=== PATIENT | male | born 1955 | race Caucasian/White ===

== ENCOUNTER 2017-11-24 20:22 | Emergency (ER) | payer MEDICARE, SELFPAY ==
[2017-11-24 20:23] VITALS: BP 204/102; PULSE 84; RESP 18; TEMP 36.4; O2SAT 100; BMI 37.3
--- NOTE | 2017-11-24 20:26 | NURSING ---
NO OLD EKG
--- NOTE | 2017-11-24 20:36 | RAD_ITS ---
STUDY: X-RAY CHEST REASON FOR EXAM: Male, 62 years old. SOB AND CHEST PAINS THAT RADIATE THROUGH TO HIS BACK. TECHNIQUE: Single frontal view of the chest. COMPARISON: None. FINDINGS: Chronic appearing increased interstitial lung markings. There is no demonstrated pleural abnormality. Enlarged heart size. Normal mediastinum and kimberly. Normal visualized pulmonary arteries. There is atherosclerotic calcification of the aortic arch with tortuosity. There are diffuse degenerative changes of the visualized thoracic spine. There is degenerative osteoarthritis of the bilateral shoulders. There is no demonstrated abnormality of the visualized soft tissue structures of the upper abdomen. RAD/Chest 1 View (Portable) IMPRESSION: There are no acute findings. Electronically Signed: Nimesh Cortez MD at 21:32 EDT , Service support ,
--- NOTE | 2017-11-24 20:36 | EKG12_ITS ---
Test Reason : CP Blood Pressure : / mmHG Vent. Rate : 087 BPM Atrial Rate : 087 BPM P-R Int : 186 ms QRS Dur : 106 ms QT Int : 390 ms P-R-T Axes : 030 019 041 degrees QTc Int : 469 ms Normal sinus rhythm Normal ECG Confirmed by QUANG SMITH, CRISTOBAL ([id number]), editor school photograph PRINCE CAILXTO ([id number]) on 11/28/2017 2:22:27 PM Referred By: LACY/JUANITO Confirmed By:CRISTOBAL DEL RIO MD
[2017-11-24 20:37] VITALS: BP 207/86; PULSE 83; RESP 19; O2SAT 98
[2017-11-24] MEDS: Aspirin 81 MG TAB.CHEW 324 MG PO (20:40)
[2017-11-24 20:46] VITALS: BP 171/77; PULSE 86; RESP 26; O2SAT 100; O2SAT 99
[2017-11-24 20:46] LABS: Absolute Lymphocyte Count 0.81 X10^3/ul (0.83-4.51); Absolute Neutrophil Count 13.4 X10^3/uL (2.0-7.7); Basophil# 0.01 X10^3/uL; Basophil% 0.1 % (0-1); Eosinophil# 0.08 X10^3/uL; Eosinophils% 0.5 % (0-5); Hemoglobin 14.9 g/dl (13.0-16.5); Lymphocyte # 0.81 X10^3/ul (4.0); Lymphocyte % 5.4 % (19-41); Mean Corp Hgb Conc 33.9 g/gl (32-36); Mean Corpuscular Hgb 30.6 pg (27.0-32.0); Mean Corpuscular Volume 90.3 fL (80-94); Mean Platelet Vol. 9.9 fl (6.2-12.0); Monocyte# 0.52 X10^3/uL; Monocyte% 3.5 % (0-10); Neutrophil # 13.43 X10^3/uL (2.7-7.7); Neutrophil % 90.4 % (47-70); POSITIVE COUNT NO; POSITIVE DIFFERENTIAL NO; POSITIVE MORPHOLOGY NO; Platelet Count 253 K/mm3 (150-450); RBC Distribution Width SD 46.5 fl (35.1-43.9); Red Blood Count 4.87 M/mm3 (4.6-6.2); White Blood Count 14.9 K/mm3 (4.4-11.0)
--- NOTE | 2017-11-24 20:46 | ED.VISSUMM ---
- ER Visit Summary Date of Service: 11/24/17 Chief Complaint: Chest pain, abdominal pain, back pain History of Present Illness: The patient is a 62 M who presents with the above symptoms. He states he started with chest pain yesterday. This pain radiated down the abdomen and around to the back. He complains of pain from the chest to the top of the abdomen. He states his back hurts from the neck all the way down to the waistline. He describes as aching and throbbing. Nothing makes it better or worse. Denies any nausea or vomiting. He has had some diarrhea he is currently on lactulose. The patient states he is set up for procedure at [facility]. It sounds like he is having an ERCP due to a ductal stone. He states that a month after that they are going to do surgery to put a stent in to his duct. He denies any fevers. He took nothing for it at home. He has no cardiac risk factors or history. He has had gastric bypass surgery. Physical Examination: Vital signs reviewed. HEENT exam unremarkable. Heart is regular rate and rhythm without murmurs. Lungs are clear to auscultation. Chest is nontender to palpation. Abdomen is soft with epigastric tenderness to palpation. Back exam reveals diffuse tenderness with no step-offs. Extremities reveal no edema. Peripheral pulses are equal. Skin exam normal. Neurologic exam normal. Test Results: Chest x-ray unremarkable. EKG is normal sinus rhythm with no ST changes. White blood cell count 14.9, sodium 146, potassium 2.6, chloride 117. ALT 207, AST 230, alkaline phosphatase 787, total bilirubin 2.4. Urinalysis is positive with nitrites and 5-10 white blood cells Emergency Department Course and Treatment: Patient was treated with aspirin. I will give him naproxen for his pain control. He does have a urinary tract infection but I will treat with Keflex. I will give him oral potassium supplement. This is likely decreased secondary to his use of lactulose for high ammonia levels. He does have elevations of his liver enzymes and bilirubin. This is likely secondary to the ductal stone. He has known about this and tells me that his liver enzymes have been elevated for a couple months. I do not feel that this has any cause for his pain today as his pain is diffuse across his trunk and not localized to the right upper quadrant. I do not feel that there is coming from a gallbladder etiology. I will treat him with Keflex, naproxen and K-Dur at home for his symptoms. He will need to follow-up with his primary care physician Treatment Plan: [] Disposition: Discharge Impression: UTI, hypokalemia, elevated liver enzymes This note was generated with [employer] dictation software. It may contain incorrect words, spelling, and punctuation that were not noted in review of the chart prior to signing ED Disposition - Plan for ED Patient: Chief Complaint: Chest Pain Referrals: Joey Castro MD [Primary Care Provider] -
[2017-11-24 21:03] LABS: Mucous, Urine 0 SEEN /hpf (<or=2+); Red Blood Cells-Urine 0 SEEN /hpf (0-5); Squamous Epithelial Cells - UA 0 SEEN /hpf (0-5)
[2017-11-24 21:05] LABS: Color, Urine Yellow (Yellow); Glucose, Dipstick Normal (Normal); Ketone-Dipstick Negative (Negative); Leukocyte Esterase-Dipstick 500 /ul (Negative); Nitrite-Dipstick Positive (Negative); Occult Blood-Urine 10 /ul (Negative); Protein-Dipstick 30 mg/dl (Negative); Urine Clarity Clear (Clear); Urine Urobilinogen 12 mg/dl (Normal)
--- NOTE | 2017-11-24 21:05 | NURSING ---
DR. HOUSE MADE AWARE OF PATIENT'S POTASSIUM OF 2.6.
[2017-11-24 21:06] LABS: Urine Bilirubin Dipstick 3 mg/dL (Negative)
[2017-11-24 21:06] LABS: ALB/GLOB Ratio 0.6 RATIO (0.9-2.4); AST(SGOT) 230 U/L (15-37); Alanine Aminotransfer ALT/SGPT 202 U/L (16-61); Albumin, Serum 2.6 g/dL (3.2-5.0); Alkaline Phosphatase 787 U/L (45-117); Anion Gap 8 (5-15); BUN 14 mg/dL (7-18); BUN/Creat Ratio 23.6 RATIO (10-20); Calcium,Total 6.9 mg/dL (8.5-10.1); Chloride 117 mmol/L (98-107); Creatinine, Serum 0.59 mg/dL (0.70-1.30); EST Glomerular Filtration Rate 147 mL/min (>60); Est Glom Filt Rate - Afr Amer 177 mL/min (>60); Estimated Creatinine Clearance 121.37 ml/min; Glucose 77 mg/dL (74-106); Lipase 242 U/L (73-393); Potassium 2.6 mmol/L (3.5-5.1); Protein, Total 6.6 g/dL (6.4-8.2); Sodium Level 146 mmol/L (136-145)
[2017-11-24 21:10] LABS: White Blood Cells 5-10 SEEN /hpf (0-5)
[2017-11-24 21:11] LABS: Calcium Oxalate Crystals Ur 1+ /hpf (<or=2+)
[2017-11-24 21:12] LABS: Bacteria RARE /hpf (None Seen)
--- NOTE | 2017-11-24 21:34 | ED.DEP ---
ED Disposition - Plan for ED Patient: Disposition: Home or Assisted Living Chief Complaint: Chest Pain Instructions: ED UTI Cystitis Male Prescriptions: Potassium Chloride [K-Dur] 10 meq PO DAILY #20 tab Cephalexin [Keflex] 500 mg PO BID #10 cap Naproxen [Naprosyn] 500 mg PO BID #20 tab Referrals: Joey Castro MD [Primary Care Provider] -
[2017-11-24 21:36] VITALS: BP 175/90; PULSE 89; RESP 22; O2SAT 97
[2017-11-24] MEDS: Naproxen 500 MG Tablet PO (21:36)
[2017-11-24] MEDS: Cephalexin 250 MG Capsule 500 MG PO (21:37)
[2017-11-24 21:41] VITALS: BP 175/90; PULSE 89; RESP 22; O2SAT 98
== END 2017-11-24 21:42 | disposition home or self-care (01) ==
PROVIDERS: Emergency Provider Emergency Medicine
DX: N39.0 Urinary tract infection, site not specified (principal); E87.6 Hypokalemia; R94.5 Abnormal results of liver function studies; J45.909 Unspecified asthma, uncomplicated; Z79.899 Other long term (current) drug therapy
CPT/HCPCS: 71045; 80053; 81001; 83690; 84484; 85025; 93005; 99285; A4216

== ENCOUNTER 2017-12-22 20:07 | Emergency (ER) | payer MEDICARE, SELFPAY ==
[2017-12-22] VITALS (11 sets, daily range): BP systolic 84–106; BP diastolic 48–65; PULSE 88–115; RESP 15–30; TEMP 36.9–37.2; O2SAT 92–98; BMI 36.1
--- NOTE | 2017-12-22 20:21 | EKG12_ITS ---
Test Reason : ABD PAIN Blood Pressure : / mmHG Vent. Rate : 102 BPM Atrial Rate : 102 BPM P-R Int : 184 ms QRS Dur : 096 ms QT Int : 374 ms P-R-T Axes : 009 004 024 degrees QTc Int : 487 ms Sinus tachycardia Inferior infarct , age undetermined Abnormal ECG Confirmed by WILL SMITH, MERLIN ([id number]), web editor OUMAR RAWLS ([id number]) on 12/25/2017 10:17:50 AM Referred By: DR BOYER Confirmed By:MERLIN SOLIS MD
--- NOTE | 2017-12-22 20:25 | ED.RN ---
NO OLD EKGS IN MUSE.
--- NOTE | 2017-12-22 20:27 | RAD_ITS ---
STUDY: X-RAY CHEST REASON FOR EXAM: Male, 62 years old. Fever and hypotension. TECHNIQUE: AP COMPARISON: November 24, 2017 FINDINGS: There is no new focal consolidation. There is a stable calcified appearing nodular focus within the left upper lung that likely reflects an underlying granuloma. Normal size heart. Normal mediastinum and kimberly. Normal visualized pulmonary arteries. Normal visualized aortic arch and descending thoracic aorta. There are diffuse degenerative changes of the visualized thoracic spine. Normal visualized ribs, clavicles, and shoulders. There is no demonstrated abnormality of the visualized soft tissue structures of the upper abdomen. RAD/Chest 1 View (Portable) IMPRESSION: No acute cardiopulmonary process. Electronically Signed: Radha Graham MD at 21:27 EDT Tel , Service support ,
[2017-12-22] MEDS: 0.9% Normal Saline 1,000 ML 1000 ML IV ×3 (20:49→21:38)
[2017-12-22 20:52] LABS: Absolute Lymphocyte Count 0.92 X10^3/ul (0.83-4.51); Absolute Neutrophil Count 20.5 X10^3/uL (2.0-7.7); Basophil# 0.02 X10^3/uL; Basophil% 0.1 % (0-1); Eosinophil# 0.03 X10^3/uL; Eosinophils% 0.1 % (0-5); Hematocrit 42.5 % (40-54); Hemoglobin 14.6 g/dl (13.0-16.5); Lymphocyte # 0.92 X10^3/ul (4.0); Lymphocyte % 4.2 % (19-41); Mean Corp Hgb Conc 34.4 g/gl (32-36); Mean Corpuscular Hgb 31.3 pg (27.0-32.0); Mean Platelet Vol. 9.6 fl (6.2-12.0); Monocyte# 0.17 X10^3/uL; Monocyte% 0.8 % (0-10); Neutrophil # 20.54 X10^3/uL (2.7-7.7); Neutrophil % 94.6 % (47-70); Platelet Count 344 K/mm3 (150-450); RBC Distribution Width CV 14.6 % (11.6-14.6); RBC Distribution Width SD 47.7 fl (35.1-43.9); Red Blood Count 4.67 M/mm3 (4.6-6.2); White Blood Count 21.7 K/mm3 (4.4-11.0)
[2017-12-22 20:54] LABS: Color, Urine Amber (Yellow); Glucose, Dipstick Normal (Normal); Ketone-Dipstick 15 mg/dl (Negative); Leukocyte Esterase-Dipstick 500 /ul (Negative); Nitrite-Dipstick Positive (Negative); Occult Blood-Urine 25 /ul (Negative); Protein-Dipstick 100 mg/dl (Negative); Urine Bilirubin Dipstick 6 mg/dL (Negative); Urine Clarity Cloudy (Clear); Urine Urobilinogen 12 mg/dl (Normal)
[2017-12-22 21:09] LABS: ALB/GLOB Ratio 0.6 RATIO (0.9-2.4); AST(SGOT) 188 U/L (15-37); Alanine Aminotransfer ALT/SGPT 147 U/L (16-61); Albumin, Serum 2.8 g/dL (3.2-5.0); Alkaline Phosphatase 985 U/L (45-117); Anion Gap 16 (5-15); BUN 17 mg/dL (7-18); BUN/Creat Ratio 10.6 RATIO (10-20); Chloride 100 mmol/L (98-107); EST Glomerular Filtration Rate 47 mL/min (>60); Est Glom Filt Rate - Afr Amer 57 mL/min (>60); Estimated Creatinine Clearance 44.76 ml/min; Glucose 106 mg/dL (74-106); Potassium 3.7 mmol/L (3.5-5.1); Protein, Total 7.8 g/dL (6.4-8.2); Sodium Level 136 mmol/L (136-145)
[2017-12-22 21:12] LABS: White Blood Cells 50-100 SEEN /hpf (0-5)
[2017-12-22 21:13] LABS: Bacteria 2+ /hpf (None Seen); Hyaline Cast 0-5 SEEN /lpf (0-5); Mucous, Urine 1+ /hpf (<or=2+); Red Blood Cells-Urine 0-5 SEEN /hpf (0-5); Squamous Epithelial Cells - UA 0-5 SEEN /hpf (0-5)
[2017-12-22 21:16] LABS: Lactic Acid 5.3 mmol/L (0.4-2.0)
[2017-12-22 21:17] LABS: Differential Indicated SCAN CRITERIA MET; POSITIVE COUNT NO; POSITIVE DIFFERENTIAL YES; POSITIVE MORPHOLOGY NO
[2017-12-22 21:21] LABS: Partial Thromboplast Time 26.8 Seconds (24.1-36.2)
[2017-12-22 21:30] LABS: International Normalized Ratio 1.2; Prothrombin Time (Protime)PT. 14.8 SECONDS (11.7-14.9)
--- NOTE | 2017-12-22 21:31 | ED.VISSUMM ---
- ER Visit Summary Date of Service: 12/22/17 Chief Complaint: Fever, chills and diaphoresis History of Present Illness: The patient is a 62 M who presents and believes he has a urinary tract infection. He states he urinating blood and he has discomfort with urination. He was admitted in November for UTI. He was at [facility] yesterday and had a stent placed for known pancreatic stones. He is status post cholecystectomy November 2016. He reports fever 100.1 at home. He took 2 anti-inflammatory pills 3 hours prior to presentation. He denies headache. Denies double vision, blurred vision loss of vision. Denies runny nose, congestion, postnasal drainage, earache or sore throat. He complains of mild shortness of breath with activity. Denies cough. He denies any chest discomfort. He does complain of epigastric right upper quadrant pain. He reports dark colored urine. He denies light colored stool. Denies any blood or mucus in his stool. He denies bruising easily. He denies any myalgias, or arthralgias. He denies paresthesia, anesthesia or motor weakness. He does complain of generalized weakness and lightheadedness with sitting. Physical Examination: Initial blood pressure was 97/56. Heart rate was 125. He was not febrile. However he did take anti-paretic prior to arrival. He appears jaundiced. HEENT is remarkable scleral icterus. Heart is rapid and regular without murmur, gallop or rub. Lungs are clear to auscultation. Abdomen is tender right upper quadrant left upper quadrant. He has no evidence of inguinal hernia. There is no CVA tenderness noted. There is no penile lesions or discharge noted. He has mild edema lower extremity's. Patient is alert and oriented ?3. Motor is 5 over 5. Sensory is intact. DTRs are symmetric with no clonus or Babinski sign. Cranial 2 through 12 are intact. Cerebellar testing is normal. Test Results: Portable chest x-ray reveals no acute findings. There is no infiltrate or effusion noted. Cardiac silhouette is normal. EKG sinus tachycardia rate of 102 with nonspecific inferior changes. White count is 21.7 thousand with 95% segs. BMP is remarkable for an anion gap acidosis with a CO2 of 20 and anion gap is 16. Hepatic profile is remarkable for total bili of 9.0. Alk phos 95 ALT of 147 AST of 188 and lipase of 20,047. Urine is remarkable for infection with leukoesterase, nitrites and blood on dip analysis. Microscopic reveals 50-100 WBCs with 2+ bacteria and is a good specimen. Lactate is 5.5. Emergency Department Course and Treatment: In light of hypotension tachycardia documented fever at home concern patient has an infected obstructed pancreatic stone. IV was established. He received IV fluids. Sepsis workup was undertaken. Zosyn was ordered and administered for GI francisco coverage. Chest x-ray was obtained because of his complaint of dyspnea. EKG to rule out ischemia. Patient's blood pressure deteriorated. He was verbally consented for right subclavian line. He was informed of risks benefits and necessity of wine. He gave verbal consent. He is presently receiving his 30 cc/kg bolus. His pressure is 76 systolic. Levophed has been ordered from the pharmacy. Portable chest x-ray was ordered to confirm line placement. Patient became hypotensive again with systolic in the 70s after 30 cc/kg bolus. He is presently on Levophed at 5 mics. Treatment Plan: Patient was consented for 7.5 Rwandan triple-lumen. Right subclavian line was placed on first attempt. This was cannulated on the way end. Using Seldinger technique 7.5 Rwandan triple-lumen was placed. Blood was aspirated from all 3 ports. Critical care time 37 minutes Disposition: Clinic [facility] was contacted for emergent transfer since patient has septic shock. Impression: 1. Septic shock 2. Obstructing pancreatic stones with acute on chronic pancreatitis 3. Sinus tachycardia documented on monitor 4. Urinary tract infection This note was generated with [employer] dictation software. It may contain incorrect words, spelling, and punctuation that were not noted in review of the chart prior to signing ED Disposition - Plan for ED Patient: Chief Complaint: Complaint Referrals: Joey Castro MD [Primary Care Provider] -
--- NOTE | 2017-12-22 21:33 | RAD_ITS ---
STUDY: X-RAY CHEST REASON FOR EXAM: Male, 62 years old. Line placement. TECHNIQUE: Portable frontal COMPARISON: December 22, 2017 at 8:32 PM FINDINGS: There is a new right-sided central venous catheter in place with its tip within the expected region of the superior vena cava. There is no new focal consolidation. Normal size heart. Normal mediastinum and kimberly. Normal visualized pulmonary arteries. Normal visualized aortic arch and descending thoracic aorta. There are diffuse degenerative changes of the visualized thoracic spine. Normal visualized ribs, clavicles, and shoulders. There is no demonstrated abnormality of the visualized soft tissue structures of the upper abdomen. RAD/CXR for Line Placement IMPRESSION: Right central venous catheter in a grossly satisfactory position. No acute cardiopulmonary process. Electronically Signed: Radha Graham MD at 22:10 EDT Tel , Service support ,
--- NOTE | 2017-12-22 21:35 | ED.DCSUM_ITS ---
- ER Visit Summary Date of Service: 12/22/17 Chief Complaint: Fever, chills and diaphoresis History of Present Illness: The patient is a 62 M who presents and believes he has a urinary tract infection. He states he urinating blood and he has discomfort with urination. He was admitted in November for UTI. He was at [facility] yesterday and had a stent placed for known pancreatic stones. He is status post cholecystectomy November 2016. He reports fever 100.1 at home. He took 2 anti-inflammatory pills 3 hours prior to presentation. He denies headache. Denies double vision, blurred vision loss of vision. Denies runny nose, congestion, postnasal drainage, earache or sore throat. He complains of mild shortness of breath with activity. Denies cough. He denies any chest discomfort. He does complain of epigastric right upper quadrant pain. He reports dark colored urine. He denies light colored stool. Denies any blood or mucus in his stool. He denies bruising easily. He denies any myalgias, or arthralgias. He denies paresthesia , anesthesia or motor weakness. He does complain of generalized weakness and lightheadedness with sitting. Physical Examination: Initial blood pressure was 97/56. Heart rate was 125. He was not febrile. However he did take anti-paretic prior to arrival. He appears jaundiced. HEENT is remarkable scleral icterus. Heart is rapid and regular without murmur, gallop or rub. Lungs are clear to auscultation. Abdomen is tender right upper quadrant left upper quadrant. He has no evidence of inguinal hernia. There is no CVA tenderness noted. There is no penile lesions or discharge noted. He has mild edema lower extremity's. Patient is alert and oriented ?3. Motor is 5 over 5. Sensory is intact. DTRs are symmetric with no clonus or Babinski sign. Cranial 2 through 12 are intact. Cerebellar testing is normal. Test Results: Portable chest x-ray reveals no acute findings. There is no infiltrate or effusion noted. Cardiac silhouette is normal. EKG sinus tachycardia rate of 102 with nonspecific inferior changes. White count is 21.7 thousand with 95% segs. BMP is remarkable for an anion gap acidosis with a CO2 of 20 and anion gap is 16. Hepatic profile is remarkable for total bili of 9.0. Alk phos 95 ALT of 147 AST of 188 and lipase of 20,047. Urine is remarkable for infection with leukoesterase, nitrites and blood on dip analysis. Microscopic reveals 50-100 WBCs with 2+ bacteria and is a good specimen. Lactate is 5.5. Emergency Department Course and Treatment: In light of hypotension tachycardia documented fever at home concern patient has an infected obstructed pancreatic stone. IV was established. He received IV fluids. Sepsis workup was undertaken. Zosyn was ordered and administered for GI francisco coverage. Chest x- ray was obtained because of his complaint of dyspnea. EKG to rule out ischemia. Patient's blood pressure deteriorated. He was verbally consented for right subclavian line. He was informed of risks benefits and necessity of wine. He gave verbal consent. He is presently receiving his 30 cc/kg bolus. His pressure is 76 systolic. Levophed has been ordered from the pharmacy. Portable chest x-ray was ordered to confirm line placement. Patient became hypotensive again with systolic in the 70s after 30 cc/kg bolus. He is presently on Levophed at 5 mics. Treatment Plan: Patient was consented for 7.5 Guinean triple-lumen. Right subclavian line was placed on first attempt. This was cannulated on the way end. Using Seldinger technique 7.5 Guinean triple-lumen was placed. Blood was aspirated from all 3 ports. Critical care time 37 minutes Disposition: Clinic [facility] was contacted for emergent transfer since patient has septic shock. Impression: 1. Septic shock 2. Obstructing pancreatic stones with acute on chronic pancreatitis 3. Sinus tachycardia documented on monitor 4. Urinary tract infection This note was generated with [employer] dictation software. It may contain incorrect words, spelling, and punctuation that were not noted in review of the chart prior to signing ED Disposition - Plan for ED Patient: Chief Complaint: Complaint Referrals: Joey Castro MD [Primary Care Provider] -
[2017-12-22 21:41] LABS: Differential Comment SCANNED
[2017-12-22] MEDS: 0.9% Normal Saline 1,000 ML 250 ML IV (22:41)
[2017-12-22] MEDS: fentaNYL 100 MCG/2 ML Ampul 50 MCG IV (23:00)
[2017-12-22 23:47] LABS: Reflex Lactate? Y
[2017-12-23 00:20] LABS: Lactic Acid 2.6 mmol/L (0.4-2.0)
== END 2017-12-22 23:50 | disposition short-term general hospital (02) ==
LOC: ED 21:01
PROVIDERS: Emergency Provider Emergency Medicine
DX: A41.9 Sepsis, unspecified organism (principal); K85.10 Biliary acute pancreatitis without necrosis or infection; K86.1 Other chronic pancreatitis; K80.51 Calculus of bile duct without cholangitis or cholecystitis with obstruction; N39.0 Urinary tract infection, site not specified; R65.21 Severe sepsis with septic shock; R00.0 Tachycardia, unspecified; E66.9 Obesity, unspecified; J44.9 Chronic obstructive pulmonary disease, unspecified; N40.0 Benign prostatic hyperplasia without lower urinary tract symptoms; M10.9 Gout, unspecified; Z90.49 Acquired absence of other specified parts of digestive tract; Z79.899 Other long term (current) drug therapy
CPT/HCPCS: 36556; 71045; 80053; 81001; 83605; 83690; 85025; 85610; 85730; 87040; 87077; 87086; 87088; 87186; 93005; 96361; 96365; 96367; 96375; 99285; J7030; A4216; C1751

== ENCOUNTER → 2018-01-07 19:04 | Outpatient (CLI) | payer MEDICARE, SELFPAY ==
[2018-01-07 19:24] LABS: Absolute Lymphocyte Count 3.69 X10^3/ul (0.83-4.51); Absolute Neutrophil Count 4.6 X10^3/uL (2.0-7.7); Basophil# 0.08 X10^3/uL; Basophil% 0.8 % (0-1); Eosinophil# 0.42 X10^3/uL; Eosinophils% 4.3 % (0-5); Hematocrit 38.3 % (40-54); Hemoglobin 12.6 g/dl (13.0-16.5); Lymphocyte # 3.69 X10^3/ul (4.0); Lymphocyte % 37.8 % (19-41); Mean Corp Hgb Conc 32.9 g/gl (32-36); Mean Corpuscular Volume 94.3 fL (80-94); Mean Platelet Vol. 9.3 fl (6.2-12.0); Monocyte# 0.89 X10^3/uL; Monocyte% 9.1 % (0-10); Neutrophil # 4.61 X10^3/uL (2.7-7.7); Neutrophil % 47.4 % (47-70); Platelet Count 495 K/mm3 (150-450); RBC Distribution Width CV 14.8 % (11.6-14.6); RBC Distribution Width SD 49.2 fl (35.1-43.9); Red Blood Count 4.06 M/mm3 (4.6-6.2); White Blood Count 9.8 K/mm3 (4.4-11.0)
[2018-01-07 19:25] LABS: POSITIVE COUNT NO; POSITIVE DIFFERENTIAL NO; POSITIVE MORPHOLOGY NO
[2018-01-07 19:30] LABS: Creatinine, Serum 0.74 mg/dL (0.70-1.30); EST Glomerular Filtration Rate 114 mL/min (>60); Est Glom Filt Rate - Afr Amer 138 mL/min (>60)
== END ==
DX: A49.8 Other bacterial infections of unspecified site (principal)
CPT/HCPCS: 82565; 85025

== ENCOUNTER 2018-01-14 14:23 | Outpatient (RCR) | payer MEDICARE, SELFPAY ==
[2017-12-31 20:57] LABS: Creatinine, Serum 0.62 mg/dL (0.70-1.30); EST Glomerular Filtration Rate 139 mL/min (>60); Est Glom Filt Rate - Afr Amer 168 mL/min (>60)
[2017-12-31 21:09] LABS: Absolute Lymphocyte Count 3.69 X10^3/ul (0.83-4.51); Absolute Neutrophil Count 7.2 X10^3/uL (2.0-7.7); Basophil# 0.06 X10^3/uL; Basophil% 0.5 % (0-1); Hematocrit 35.7 % (40-54); Hemoglobin 11.7 g/dl (13.0-16.5); Lymphocyte # 3.69 X10^3/ul (4.0); Lymphocyte % 29.2 % (19-41); Mean Corp Hgb Conc 32.8 g/gl (32-36); Mean Corpuscular Hgb 30.3 pg (27.0-32.0); Mean Corpuscular Volume 92.5 fL (80-94); Mean Platelet Vol. 9.2 fl (6.2-12.0); Monocyte# 0.88 X10^3/uL; Neutrophil # 7.24 X10^3/uL (2.7-7.7); Neutrophil % 57.2 % (47-70); POSITIVE COUNT YES; POSITIVE DIFFERENTIAL NO; POSITIVE MORPHOLOGY YES; Platelet Count 587 K/mm3 (150-450); RBC Distribution Width CV 14.3 % (11.6-14.6); RBC Distribution Width SD 47.3 fl (35.1-43.9); Red Blood Count 3.86 M/mm3 (4.6-6.2); White Blood Count 12.6 K/mm3 (4.4-11.0)
[2018-01-01 12:03] LABS: Pathologist Review Reviewed
[2018-01-14 14:36] LABS: Absolute Lymphocyte Count 3.41 X10^3/ul (0.83-4.51); Absolute Neutrophil Count 3.8 X10^3/uL (2.0-7.7); Basophil# 0.05 X10^3/uL; Basophil% 0.6 % (0-1); Eosinophil# 0.48 X10^3/uL; Eosinophils% 5.7 % (0-5); Hematocrit 40.8 % (40-54); Hemoglobin 13.1 g/dl (13.0-16.5); Lymphocyte # 3.41 X10^3/ul (4.0); Lymphocyte % 40.2 % (19-41); Mean Corp Hgb Conc 32.1 g/gl (32-36); Mean Corpuscular Hgb 30.3 pg (27.0-32.0); Mean Corpuscular Volume 94.4 fL (80-94); Mean Platelet Vol. 9.3 fl (6.2-12.0); Monocyte# 0.77 X10^3/uL; Monocyte% 9.1 % (0-10); Neutrophil # 3.76 X10^3/uL (2.7-7.7); Neutrophil % 44.3 % (47-70); Platelet Count 341 K/mm3 (150-450); RBC Distribution Width CV 15.2 % (11.6-14.6); RBC Distribution Width SD 52.3 fl (35.1-43.9); Red Blood Count 4.32 M/mm3 (4.6-6.2); White Blood Count 8.5 K/mm3 (4.4-11.0)
[2018-01-14 14:37] LABS: POSITIVE COUNT NO; POSITIVE DIFFERENTIAL NO; POSITIVE MORPHOLOGY NO
[2018-01-14 14:43] LABS: Creatinine, Serum 0.77 mg/dL (0.70-1.30); EST Glomerular Filtration Rate 108 mL/min (>60); Est Glom Filt Rate - Afr Amer 131 mL/min (>60)
== END 2018-01-29 23:59 ==
LOC: HHLAB 14:23
DX: A49.8 Other bacterial infections of unspecified site (principal)
CPT/HCPCS: 82565; 85025

== ENCOUNTER 2019-01-11 16:18 | Emergency (ER) | payer MEDICARE, SELFPAY ==
[2019-01-11 16:19] VITALS: BP 161/88; PULSE 76; RESP 18; TEMP 36.8; O2SAT 95; BMI 33.6
--- NOTE | 2019-01-11 17:03 | ED.DCSUM_ITS ---
- ER Visit Summary Date of Service: 01/11/19 Chief Complaint: Left chest wall pain History of Present Illness: The patient is a 63 M who states that approximately 9 days ago he fell after losing his balance. He struck the left side of his chest. He continues to hurt. He notes pain just underneath his breast on the left. Denies any bruising. The pain is aching and turns to sharp with movement deep breathing and touch. No cough or coughing up blood. No significant shortness of breath. Physical Examination: Afebrile vital signs stable Gen: Well-nourished well-developed Head: Normocephalic atraumatic Eyes: Perrl EOMI ENT: TMs clear no rhinorrhea moist mucous membranes Neck: Supple no lymphadenopathy no JVD nontender CVS: Regular rate rhythm no murmurs normal S1-S2 Respiratory: No distress clear to auscultation bilaterally left anterior chest is tender to palpation along the costochondral border just inferior to the left breast. Abdomen: Soft nontender nondistended normal bowel sounds no masses Back: Nontender Extremity: Nontender no edema Skin: Normal color no rash Neuro: alert orientated ?3 CN II-XII intact normal strength sensation Psych: Normal affect normal mood Test Results: Rib series was obtained. This demonstrated left eighth and ninth rib fractures. No pneumothorax hemothorax noted. Emergency Department Course and Treatment: Patient will be discharged home with supportive care. Instructions for pillow for chest support when moving. Follow-up with primary care if not improving. Deep breathing several times per hour to stimulate incentive spirometry was encouraged Impression: 1. Left chest wall contusion This note was generated with [employer] dictation software. It may contain incorrect words, spelling, and punctuation that were not noted in review of the chart prior to signing ED Disposition - Plan for ED Patient: Disposition: Home or Assisted Living Instructions: Rib Fracture (Broken Rib) Referrals: Joey Barger MD [Primary Care Provider] - (in 2 weeks)
--- NOTE | 2019-01-11 17:12 | RAD_ITS ---
STUDY: X-RAY - UNILATERAL RIBS ( LEFT ) WITH CHEST REASON FOR EXAM: Male, 63 years old. Fall. Pain. TECHNIQUE - RIBS: 4 view(s) of the ribs. TECHNIQUE - CHEST: Frontal view COMPARISON: 12/23/1979 FINDINGS - RIBS: There are minimally displaced fractures at the lateral aspect of the left eighth and ninth ribs. FINDINGS - CHEST: The lungs are clear. There are no pleural effusions. There is no pneumothorax. The heart is normal in size. RAD/Ribs Uni Min 3V w/PA Chest IMPRESSION: RIBS: Minimally displaced fractures at the lateral aspect of the left eighth and ninth ribs. CHEST: Clear lungs. Electronically Signed: Eldon Murphy, at 17:28 EDT Tel , Service support ,
[2019-01-11 17:57] VITALS: BP 162/71; PULSE 79; RESP 16; O2SAT 96
== END 2019-01-11 17:55 | disposition home or self-care (01) ==
PROVIDERS: Emergency Provider Emergency Medicine; Family Provider Family Medicine; PCP Family Medicine
DX: S22.42XA Multiple fractures of ribs, left side, initial encounter for closed fracture (principal); S20.212A Contusion of left front wall of thorax, initial encounter; W19.XXXA Unspecified fall, initial encounter; Y93.9 Activity, unspecified; Y92.9 Unspecified place or not applicable; G62.9 Polyneuropathy, unspecified; M10.9 Gout, unspecified; N40.0 Benign prostatic hyperplasia without lower urinary tract symptoms; Z79.899 Other long term (current) drug therapy
CPT/HCPCS: 71101; 99282

== ENCOUNTER 2024-03-24 20:22 | Emergency (ER) | payer OTHER, MEDICARE, SELFPAY ==
[2024-03-24 20:22] VITALS: BP 184/95; PULSE 83; RESP 18; TEMP 37.1; O2SAT 96; BMI 37.8
[2024-03-24 22:22] VITALS: PULSE 88; RESP 16; O2SAT 99
--- NOTE | 2024-03-24 22:22 | EDS_ITS ---
HPI History of Present Illness Chief Complaint: Laceration Narrative Narrative: Chief complaint and HPI: Laceration. 69-year-old male presents for evaluation of right anterior herrera laceration. Patient states that he was at work today when approximately 8 PM he scraped his leg on a skid steer. He is not on blood thinners. Patient states that he is up-to-date on tetanus. I do not have that in my records but he states he knows for sure he got a tetanus vaccine last year. Patient denies any crush injury to the actual lower extremity or bone. Denies pain. Denies any his head. No LOC. Denies injury elsewhere. Review of systems: See HPI Medications: As listed on the chart Allergies: As listed on the chart PFSH: Per chart Vital signs: As listed on the chart. Reviewed. Physical exam: Gen: A&O x3, NAD Head: Normocephalic, atraumatic Eyes: No sclera icterus, conjunctiva clear ENT: Moist mucous membranes Neck: Full range of motion CV: Regular rate Resp: Nonlabored respiration Musc: Full ROM, no deformity, 8 cm V-shaped laceration to the right anterior herrera, no active bleeding, no foreign material observed, DP/PT pulses plus 2 out of 4, good capillary refill, sensation intact, nontender to palpation Skin: Warm, dry Neuro: Alert, oriented, grossly intact, sensation intact Psych: Cooperative, appropriate mood and affect [facility] Home Medications ?Medication ?Instructions ?Recorded ?Last Taken ?Type albuterol sulfate 90 mcg/actuation 1 - 2 puff inhalation Q6H PRN PRN 11/24/17 Unknown History aerosol inhaler (Ventolin HFA) Sob &/Or Wheezing allopurinol 100 mg tablet 100 mg PO DAILY 11/24/17 Unknown History amitriptyline 25 mg tablet 25 mg PO QHS 11/24/17 Unknown History clotrimazole 1 % topical cream 1 applic topical DAILY 11/24/17 Unknown History cyanocobalamin (vitamin B-12) 1,000 mcg PO DAILY 11/24/17 Unknown History 1,000 mcg capsule ferrous sulfate 325 mg (65 mg 325 mg PO DAILY 11/24/17 Unknown History iron) tablet gabapentin 300 mg capsule 300 mg PO TID 11/24/17 Unknown History lactulose 20 gram/30 mL oral 30 ml PO Q2H PRN PRN HIGH AMONIA 11/24/17 Unknown History solution meloxicam 15 mg tablet 15 tab PO DAILY 11/24/17 Unknown History multivitamin (Multiple Vitamins 1 ea PO DAILY 11/24/17 Unknown History tablet) tamsulosin 0.4 mg capsule 0.4 mg PO QHS 11/24/17 Unknown History vitamin B complex-folic acid 0.4 0.4 mg PO DAILY 11/24/17 Unknown History mg tablet ascorbic acid (vitamin C) 500 mg 500 mg PO DAILY 12/22/17 Unknown History capsule calcium carbonate 500 mg-vitamin 1 tab PO DAILY 12/22/17 Unknown History D3 15 mcg (600 unit) tablet cholecalciferol (vitamin D3) 25 1,000 unit PO DAILY 12/22/17 Unknown History mcg (1,000 unit) capsule (Vitamin D3) silver sulfadiazine 1 % topical 1 applic topical DAILY 12/22/17 Unknown History cream cephalexin 500 mg capsule 500 mg PO BID 7 days #14 caps 03/24/24 Unknown Rx Allergy/AdvReac Type Severity Reaction Status Date / Time No Known Allergies Allergy Verified 03/24/24 20:22 Social History Smoking Status: Never smoker EXAM Physical Exam Const Vital Signs: 03/24/24 20:22 03/24/24 22:22 Temperature 98.7 F Temperature Source Temporal Pulse Rate 83 88 Respiratory Rate 18 16 Blood Pressure 184/95 H Blood Pressure Mean 124 Pulse Ox 96 99 MDM MDM MDM Narrative Medical decision making narrative: 69-year-old male presents for evaluation of right anterior herrera laceration. Obtained laceration at work. Up-to-date on tetanus. Patient will require suture repair. Patient tolerated repair well. Discharge Plan Triage Chief Complaint: Laceration ED Provider: Andreas Espinoza Dx/Rx/DC Orders Instructions: ED Laceration, All Closures, ED Laceration Extremity Prescriptions: New cephalexin 500 mg capsule 500 mg PO BID 7 Days Qty: 14 0RF No Action meloxicam 15 MG tablet 15 tab PO DAILY Patient Comments: take 1 tablet by mouth once daily allopurinol 100 MG tablet 100 mg PO DAILY Patient Comments: take 1 tablet by mouth once daily amitriptyline 25 MG tablet 25 mg PO QHS tamsulosin 0.4 MG capsule 0.4 mg PO QHS Patient Comments: take 1 capsule by mouth once daily at bedtime gabapentin 300 MG capsule 300 mg PO TID Patient Comments: take 1 capsule by mouth three times a day albuterol sulfate [Ventolin HFA] 1 INHALER inhaler 1 - 2 puff inhalation Q6H PRN PRN (Reason: Sob &/Or Wheezing) clotrimazole 45 GM cream 1 applic topical DAILY Patient Comments: APPLY TO AFFECTED AREA TWICE DAILY; ALTERNATE 2 WEEKS OF CLOTRIMA...(REFER TO PRESCRIPTION NOTES). lactulose 20 GM/30 ML solution 30 ml PO Q2H PRN PRN (Reason: HIGH AMONIA) Patient Comments: take 30 milliliters by mouth EVERY 1-2 HOURS UNTIL LOOSE STOOL, T...(REFER TO PRESCRIPTION NOTES). multivitamin [Multiple Vitamins] 1 EACH tablet 1 ea PO DAILY ferrous sulfate 325 MG tablet 325 mg PO DAILY vitamin B complex-folic acid 0.4 MG tablet 0.4 mg PO DAILY cyanocobalamin (vitamin B-12) 1,000 MCG capsule 1,000 mcg PO DAILY silver sulfadiazine 1 APPLIC bottle 1 applic topical DAILY cholecalciferol (vitamin D3) [Vitamin D3] 1,000 UNIT capsule 1,000 unit PO DAILY calcium carbonate-vitamin D3 1 EACH tablet 1 tab PO DAILY ascorbic acid (vitamin C) 500 MG capsule 500 mg PO DAILY Primary Care Provider: Joey Barger Referrals: [facility]] - As soon as possible (Sutures need to be removed in 10 days) Joey Barger MD [Primary Care Provider] - Activity Restrictions/Additional Instructions: No bathtubs, swimming pools, hot tubs, lakes or bal until fully healed. Monitor for worsening signs of infection. Print Language: Italian Disposition Disposition: Home, Self Care
[2024-03-24] MEDS: Lidocaine 1% /Epi 1:100 (20ml) 20 ML Vial INFILT (22:27)
[2024-03-24 23:26] VITALS: BP 140/78; PULSE 88; RESP 16; TEMP 36.7; O2SAT 99
== END 2024-03-24 23:32 | disposition home or self-care (01) ==
PROVIDERS: Emergency Provider Surgery; PCP Family Medicine; Visit Provider Surgery
DX: S81.811A Laceration without foreign body, right lower leg, initial encounter (principal); X58.XXXA Exposure to other specified factors, initial encounter
CPT/HCPCS: 12004; 99283

== ENCOUNTER 2024-04-03 12:42 | Emergency (ER) | payer OTHER, SELFPAY ==
[2024-04-03 12:43] VITALS: BP 174/91; PULSE 68; RESP 16; TEMP 36.7; O2SAT 97; BMI 37.5
--- NOTE | 2024-04-03 14:17 | EDS_ITS ---
HPI History of Present Illness Chief Complaint: Cellulitis Informant: patient Onset/Context/Timing Onset: Days (10) Context: Gradual Onset Timing: Continuous Quality: Stabbing Location: Right lower leg Worsened by: Standing from a seated position Relieved by: Movement and ambulation Narrative Narrative: Patient presents with redness to his right leg that has been getting worse over the past few days. Patient states he injured his leg 10 days ago and had sutures placed here in the emergency department at that time. Patient states [facility]. Patient states he was referred to the emergency department because of the redness around the wound. Patient denies any fevers or chills. Patient denies any discharge or drainage. [facility] Medical History (Updated 04/03/24 @ 15:[address] Lokesh Patrick, ) Hypercholesterolemia Gout Laceration without foreign body, right lower leg, initial encounter Home Medications ?Medication ?Instructions ?Recorded ?Last Taken ?Type albuterol sulfate 90 mcg/actuation 1 - 2 puff inhalation Q6H PRN PRN 11/24/17 Unknown History aerosol inhaler (Ventolin HFA) Sob &/Or Wheezing allopurinol 100 mg tablet 100 mg PO DAILY 11/24/17 Unknown History amitriptyline 25 mg tablet 25 mg PO QHS 11/24/17 Unknown History clotrimazole 1 % topical cream 1 applic topical DAILY 11/24/17 Unknown History cyanocobalamin (vitamin B-12) 1,000 mcg PO DAILY 11/24/17 Unknown History 1,000 mcg capsule ferrous sulfate 325 mg (65 mg 325 mg PO DAILY 11/24/17 Unknown History iron) tablet gabapentin 300 mg capsule 300 mg PO TID 11/24/17 Unknown History lactulose 20 gram/30 mL oral 30 ml PO Q2H PRN PRN HIGH AMONIA 11/24/17 Unknown History solution meloxicam 15 mg tablet 15 tab PO DAILY 11/24/17 Unknown History multivitamin (Multiple Vitamins 1 ea PO DAILY 11/24/17 Unknown History tablet) tamsulosin 0.4 mg capsule 0.4 mg PO QHS 11/24/17 Unknown History vitamin B complex-folic acid 0.4 0.4 mg PO DAILY 11/24/17 Unknown History mg tablet ascorbic acid (vitamin C) 500 mg 500 mg PO DAILY 12/22/17 Unknown History capsule calcium 500 mg (as 1 tab PO DAILY 12/22/17 Unknown History carbonate)-vitamin D3 15 mcg (600 unit) tablet cholecalciferol (vitamin D3) 25 1,000 unit PO DAILY 12/22/17 Unknown History mcg (1,000 unit) capsule (Vitamin D3) silver sulfadiazine 1 % topical 1 applic topical DAILY 12/22/17 Unknown History cream amoxicillin 875 mg-potassium 875 mg PO Q12H #20 TABLETS 04/03/24 Unknown Rx clavulanate 125 mg tablet Allergy/AdvReac Type Severity Reaction Status Date / Time No Known Allergies Allergy Verified 04/03/24 12:43 Surgical History (Updated 04/03/24 @ 15:[address] Lokesh Patrick DO) S/P excision of acoustic neuroma Hx of gastric bypass Hx of total knee replacement Hx of arthroscopic knee surgery Hx of cholecystectomy Hx of appendectomy Social History Smoking Status: Never smoker ROS ROS ED Constitutional Constitutional ED: Denies chills or fever(s) Eyes Eyes: Denies blurry vision or change in vision ENT ENT ED: Denies rhinorrhea or sore throat Cardiovascular Cardiovascular: Denies chest pain or palpitations Respiratory/Chest Respiratory/Chest: Denies cough or dyspnea Gastrointestinal Gastrointestinal: Denies nausea or vomiting Genitourinary Genitourinary ED: Denies dysuria or hematuria Musculoskeletal Musculoskeletal: Denies back pain or neck pain Integumentary Denies abscess or rash Neurologic Neurologic: Denies headache(s) or weakness Allergic/Immunologic Allergic/Immunologic ED: Denies mouth swelling or urticaria EXAM Physical Exam Const Vital Signs: 04/03/24 12:43 Temperature 98.1 F Temperature Source Temporal Pulse Rate 68 Respiratory Rate 16 Blood Pressure 174/91 H Blood Pressure Mean 118 Pulse Ox 97 Oxygen Delivery Method Room Air Positive well nourished and well developed General Appearance ED: well developed and NAD HEENT Reports moist mucous membranes Neck supple and no JVD Extremity Extremity Narrative: Ration of the anterior aspect of the right lower leg. There is some surrounding erythema and warmth. There is no discharge or drainage noted. There is full range of motion of the right lower extremity. Pedal pulses are equal bilat erally. Sensation is intact to light touch in all digits. Capillary refill was less than 2 seconds in all digits. Neuro oriented x3, CN's II-XII intact bilaterally and no sensory deficits noted Sensorium / Orientation: alert Motor Exam: strength 5/5 throughout Psych mental status grossly normal MDM MDM MDM Narrative Medical decision making narrative: Differential diagnosis includes cellulitis, and sepsis. CBC will be obtained to assess for leukocytosis and anemia. Basic metabolic profile will be obtained to assess for electrolyte abnormality and renal function. Blood culture will be obtained to assess for sepsis. Lab Data Attestation: I reviewed the patient's lab results. Lab results narrative: CBC was reviewed and was within normal limits. Basic metabolic profile was reviewed and was within normal limits. Labs: Laboratory Results - last 24 hr 04/03/24 14:13 WBC 9.4 RBC 4.96 Hgb 14.9 Hct 45.8 MCV 92.3 MCH 30.0 MCHC 32.5 RDW Std Deviation 47.5 H RDW Coeff of Isatu 14.0 Plt Count 292 MPV 9.2 Immature Gran % (Auto) 0.300 Neut % (Auto) 59.0 Lymph % (Auto) 29.9 Benzie % (Auto) 8.8 Eos % (Auto) 1.7 Baso % (Auto) 0.3 Absolute Neuts (auto) 5.5 Absolute Lymphs (auto) 2.80 Nucleated RBC % 0 Sodium 141 Potassium 3.5 Chloride 110 H Carbon Dioxide 26.0 Anion Gap 5 BUN 14 Creatinine 0.74 Estim Creat Clear Calc 102.52 Est GFR (MDRD) Af Amer 136 Est GFR (MDRD) Non-Af 112 BUN/Creatinine Ratio 19.0 Glucose 91 Calcium 9.0 Treatment and Re-Evaluation :: This patient was given a dose of Unasyn. Sutures were removed without difficulty. Patient was advised of findings. Patient was given prescription for Augmentin. Sutures were removed without difficulty. Patient tolerated procedure well. Bacitracin dressing was applied. Patient was instructed to keep the wound clean and dry. Patient was instructed to follow-up with his primary care physician in 5 to 7 days. Patient understood and was agreeable with the plan. All questions were answered. Discharge Plan Triage Chief Complaint: Cellulitis Other Complaint: Suture Remv ED Provider: Lokesh Patrick Dx/Rx/DC Orders Clinical Impression: Laceration without foreign body, right lower leg, initial encounter, Cellulitis of right leg Instructions: ED Cellulitis, ED Suture Removal, Infected Wound Prescriptions: New amoxicillin-pot clavulanate 875-125 mg tablet 875 mg PO Q12H Qty: 20 0RF No Action meloxicam 15 MG tablet 15 tab PO DAILY Patient Comments: take 1 tablet by mouth once daily allopurinol 100 MG tablet 100 mg PO DAILY Patient Comments: take 1 tablet by mouth once daily amitriptyline 25 MG tablet 25 mg PO QHS tamsulosin 0.4 MG capsule 0.4 mg PO QHS Patient Comments: take 1 capsule by mouth once daily at bedtime gabapentin 300 MG capsule 300 mg PO TID Patient Comments: take 1 capsule by mouth three times a day albuterol sulfate [Ventolin HFA] 1 INHALER inhaler 1 - 2 puff inhalation Q6H PRN PRN (Reason: Sob &/Or Wheezing) clotrimazole 45 GM cream 1 applic topical DAILY Patient Comments: APPLY TO AFFECTED AREA TWICE DAILY; ALTERNATE 2 WEEKS OF CLOTRIMA...(REFER TO PRESCRIPTION NOTES). lactulose 20 GM/30 ML solution 30 ml PO Q2H PRN PRN (Reason: HIGH AMONIA) Patient Comments: take 30 milliliters by mouth EVERY 1-2 HOURS UNTIL LOOSE STOOL, T...(REFER TO PRESCRIPTION NOTES). multivitamin [Multiple Vitamins] 1 EACH tablet 1 ea PO DAILY ferrous sulfate 325 MG tablet 325 mg PO DAILY vitamin B complex-folic acid 0.4 MG tablet 0.4 mg PO DAILY cyanocobalamin (vitamin B-12) 1,000 MCG capsule 1,000 mcg PO DAILY silver sulfadiazine 1 APPLIC bottle 1 applic topical DAILY cholecalciferol (vitamin D3) [Vitamin D3] 1,000 UNIT capsule 1,000 unit PO DAILY calcium carbonate-vitamin D3 1 EACH tablet 1 tab PO DAILY ascorbic acid (vitamin C) 500 MG capsule 500 mg PO DAILY Primary Care Provider: Joey Barger Referrals: Joey Barger MD [Primary Care Provider] - 5-7 Days Print Language: Slovenian Disposition Disposition: Home, Self Care
[2024-04-03 14:30] LABS: Absolute Neutrophil Count 5.5 X10^3/uL (2.0-7.7); Basophil# 0.03 X10^3/uL; Basophil% 0.3 % (0-1); Eosinophil# 0.16 X10^3/uL; Eosinophils% 1.7 % (0-5); Hematocrit 45.8 % (40-54); Hemoglobin 14.9 g/dL (13.0-16.5); Lymphocyte % 29.9 % (19-41); Mean Corp Hgb Conc 32.5 g/dL (32-36); Mean Corpuscular Volume 92.3 fL (80-94); Mean Platelet Vol. 9.2 fl (6.2-12.0); Monocyte# 0.82 X10^3/uL; Monocyte% 8.8 % (0-10); NRBC Flagged by Analyzer 0 % (0-5); Neutrophil # 5.51 X10^3/uL (2.7-7.7); Platelet Count 292 K/mm3 (150-450); RBC Distribution Width SD 47.5 fl (35.1-43.9); Red Blood Count 4.96 M/mm3 (4.6-6.2); White Blood Count 9.4 K/mm3 (4.4-11.0)
[2024-04-03] MEDS: Ampicillin/Sulbactam 3 GM in 0.9% Normal Saline (100mL MB+) 100 ML IV (14:36)
[2024-04-03 14:45] LABS: Anion Gap 5 (5-15); BUN 14 mg/dL (7-18); Chloride 110 mmol/L (98-107); Creatinine, Serum 0.74 mg/dL (0.70-1.30); EST Glomerular Filtration Rate 112 mL/min (>60); Est Glom Filt Rate - Afr Amer 136 mL/min (>60); Estimated Creatinine Clearance 102.52 ml/min; Glucose 91 mg/dL (74-106); Potassium 3.5 mmol/L (3.5-5.1); Sodium Level 141 mmol/L (136-145)
[2024-04-03 15:42] VITALS: BP 145/82; PULSE 68; RESP 16; TEMP 36.7; O2SAT 97
== END 2024-04-03 15:48 | disposition home or self-care (01) ==
PROVIDERS: Emergency Provider Emergency Medicine; PCP Family Medicine; Referring Provider Emergency Medicine; Visit Provider Emergency Medicine
DX: S81.811A Laceration without foreign body, right lower leg, initial encounter (principal); L03.115 Cellulitis of right lower limb; X58.XXXA Exposure to other specified factors, initial encounter
CPT/HCPCS: 80048; 85025; 87040; 96365; 99283; J7050; A4216; J0295

== ENCOUNTER → 2024-11-10 | Outpatient (CLI) | payer MEDICARE, SELFPAY | END | disposition home or self-care (01) | LOC: LABSPEC 14:28 | PROVIDERS: PCP Family Medicine; Referring Provider Urology; Visit Provider Urology | DX: N20.9 Urinary calculus, unspecified (principal) | CPT/HCPCS: 82360 ==

== ENCOUNTER → 2024-12-22 | Outpatient (CLI) | payer MEDICARE, SELFPAY ==
[2024-12-22 12:22] LABS: PSA,Total- Diagnostic 8.51 ng/mL (0.00-4.00)
== END | disposition home or self-care (01) ==
LOC: LAB 09:50
PROVIDERS: PCP Family Medicine; Referring Provider Nurse Practitioner; Visit Provider Nurse Practitioner
DX: R97.20 Elevated prostate specific antigen [PSA] (principal)
CPT/HCPCS: 36415; 84153

== ENCOUNTER 2025-01-26 15:40 | Outpatient (CLI) | payer MEDICARE, SELFPAY ==
--- NOTE | 2025-01-26 13:00 | PROSBIL_PTH ---
PATIENT: TIFFANIE BRYSON LOC: [facility] U#:[id number] AGE/SX: 69/M ROOM: RE01/26/[address]: Dr. Remy Sprague MD : 1955 BED: DIS: 01/26/2025 SPEC #: [id number] RECD: 01/26/25 15:00 STATUS: ANSELMO REFredi #: [id number] ZAINA: 01/26/25 13:[address]: Remy Sprague DEPT: SURGICAL PATHOLOGY RECD BY: Musa Medellin ENTERED: 01/27/25 08:48 SP TYPE: PROST BX SHIVANI DR: Dr. Joey Barger MD Tissues: A - PROSTATE RIGHT B - PROSTATE RIGHT C - PROSTATE RIGHT D - PROSTATE LEFT E - PROSTATE LEFT F - PROSTATE LEFT Procedures: PROSTATE BX Immunohistochemical Stains HEADER OPERATION: Prostate biopsy PRE-OP DIAGNOSIS: Elevated PSA TISSUE SUBMITTED: A - Right apex, B - Right mid, C - Right base, D - Left apex, E - Left mid, F - Left base MICROSCOPIC DIAGNOSIS A. Prostate, right, apex, biopsy: * Benign prostatic tissue (See note) Note: : Immunohistochemical staining shows basal cell staining with minimal to no AMACR supporting the diagnosis. B. Prostate, right, mid, biopsy: * Benign prostatic tissue C. Prostate, right, base, biopsy: * Benign prostatic tissue D. Prostate, left, apex, biopsy: * Benign prostatic tissue (See note) Note: Immunohistochemical staining shows basal cell staining with minimal to no AMACR supporting the diagnosis. E. Prostate, left, mid, biopsy: * Atypical small acinar proliferation (See note) Note: Immunohistochemical staining shows some AMACR without basal cell staining supporting the diagnosis. F. Prostate, left, base, biopsy: * Benign prostatic tissue MICROSCOPIC DESCRIPTION Slides are reviewed. All matched controls reacted appropriately. These tests were developed and their performance characteristics determined by [facility]. They may not have been cleared or approved by the [place].S. Food and Drug Administration. The FDA has determined that such clearance or approval is not necessary. The above immunohistochemical/dualISH markers are viewed by the Pathologist. GROSS DESCRIPTION Received in 6 formalin containers labeled with the patient's name and date of . Designated as: A. RA is a michel tissue core, 1.6 cm in length by 0.1 cm in diameter. Entirely submitted in 1 cassette.B. RM is a michel tissue core, 2.0 cm in length by 0.1 cm in diameter. Entirely submitted in 1 cassette. C. RB is a michel tissue core, 1.6 cm in length by 0.1 cm in diameter. Entirely submitted in 1 cassette. D. LA is a michel tissue core, 1.5 cm in length by 0.1 cm in diameter. Entirely submitted in 1 cassette. E. LM is a michel tissue core, 1.8 cm in length by 0.1 cm in diameter. Entirely submitted in 1 cassette. F. LB is a michel tissue core, 1.3 cm in length by 0.1 cm in diameter. Entirely submitted in 1 cassette. AL 01/27/2025 CPT:85720l1,58891t1
--- NOTE | 2025-01-26 13:00 | PROSBIL_PTH ---
PATIENT: TIFFANIE BRYSON LOC: [facility] U#:[id number] AGE/SX: 69/M ROOM: RE01/26/[address]: Dr. Remy Sprague MD : 1955 BED: DIS: 01/26/2025 SPEC #: [id number] RECD: 01/26/25 15:00 STATUS: ANSELMO REFredi #: [id number] ZAINA: 01/26/25 13:[address]: Remy Sprague DEPT: SURGICAL PATHOLOGY RECD BY: Musa Medellin ENTERED: 01/27/25 08:48 SP TYPE: PROST BX SHIVANI DR: Dr. Joey Barger MD Tissues: A - PROSTATE RIGHT B - PROSTATE RIGHT C - PROSTATE RIGHT D - PROSTATE LEFT E - PROSTATE LEFT F - PROSTATE LEFT Procedures: PROSTATE BX Immunohistochemical Stains HEADER OPERATION: Prostate biopsy PRE-OP DIAGNOSIS: Elevated PSA TISSUE SUBMITTED: A - Right apex, B - Right mid, C - Right base, D - Left apex, E - Left mid, F - Left base MICROSCOPIC DIAGNOSIS A. Prostate, right, apex, biopsy: * Benign prostatic tissue (See note) Note: : Immunohistochemical staining shows basal cell staining with minimal to no AMACR supporting the diagnosis. B. Prostate, right, mid, biopsy: * Benign prostatic tissue C. Prostate, right, base, biopsy: * Benign prostatic tissue D. Prostate, left, apex, biopsy: * Benign prostatic tissue (See note) Note: Immunohistochemical staining shows basal cell staining with minimal to no AMACR supporting the diagnosis. E. Prostate, left, mid, biopsy: * Atypical small acinar proliferation (See note) Note: Immunohistochemical staining shows some AMACR without basal cell staining supporting the diagnosis. F. Prostate, left, base, biopsy: * Benign prostatic tissue MICROSCOPIC DESCRIPTION Slides are reviewed. All matched controls reacted appropriately. These tests were developed and their performance characteristics determined by [facility]. They may not have been cleared or approved by the U.S. Food and Drug Administration. The FDA has determined that such clearance or approval is not necessary. The above immunohistochemical/dualISH markers are viewed by the Pathologist. GROSS DESCRIPTION Received in 6 formalin containers labeled with the patient's name and date of . Designated as: A. RA is a michel tissue core, 1.6 cm in length by 0.1 cm in diameter. Entirely submitted in 1 cassette.B. RM is a michel tissue core, 2.0 cm in length by 0.1 cm in diameter. Entirely submitted in 1 cassette. C. RB is a michel tissue core, 1.6 cm in length by 0.1 cm in diameter. Entirely submitted in 1 cassette. D. LA is a michel tissue core, 1.5 cm in length by 0.1 cm in diameter. Entirely submitted in 1 cassette. E. LM is a michel tissue core, 1.8 cm in length by 0.1 cm in diameter. Entirely submitted in 1 cassette. F. LB is a michel tissue core, 1.3 cm in length by 0.1 cm in diameter. Entirely submitted in 1 cassette. MD 01/27/2025 CPT:73562i3,02794r4
== END 2025-01-26 23:59 | disposition home or self-care (01) ==
LOC: LABSPEC 15:42
PROVIDERS: PCP Family Medicine; Referring Provider Urology; Visit Provider Urology
DX: R97.20 Elevated prostate specific antigen [PSA] (principal)
CPT/HCPCS: 88305; 88342; G0416